=== PATIENT | male | born 1930 | race Caucasian/White ===

== ENCOUNTER 2017-07-11 14:05 | Emergency (ER) | payer MEDICARE, OTHER ==
[~2017-07-11] VITALS: Ht 182.9 cm; Wt 76.5 kg
[~2017-07-11 14:05] MED LIST: ASPI81TA52 PO; CHOL2000 PO; MULT-1179 PO; OMEG1CAP2 PO; UBID1CAP59 PO; VITC500T PO
[2017-07-11 14:44] LABS: BASOPHILS % (AUTO) 0.3 % (0-1); EOSINOPHILS # (AUTO) 0.1 X10'3 (0-0.9); EOSINOPHILS % (AUTO) 1.6 % (0-6); HEMATOCRIT 43.3 % (42.0-52.0); HEMOGLOBIN 14.7 g/dl (14.0-17.9); LYMPHOCYTES # (AUTO) 1.3 X10'3 (1.1-4.8); MEAN CORPUSCULAR HEMOGLOBIN 30.2 PG (27.0-31.0); MEAN CORPUSCULAR VOLUME 88.8 FL (78-98); MEAN PLATELET VOLUME 8.6 FL (7.4-10.4); MONOCYTES # (AUTO) 0.5 X10'3 (0-0.9); MONOCYTES % (AUTO) 6.9 % (2-12); NEUTROPHILS # (AUTO) 5.2 X10'3 (1.8-7.7); NEUTROPHILS % (AUTO) 73.2 % (42-75); PLATELET COUNT 164 X10'3 (140-440); RED BLOOD COUNT 4.87 X10'6 (4.70-6.10); RED CELL DISTRIBUTION WIDTH 13.7 % (11.5-14.5); WHITE BLOOD COUNT 7.1 X10'3 (4.5-11.0)
[2017-07-11 14:53] LABS: PARTIAL THROMBOPLASTIN TIME 27 SECONDS (22-32); PROTHROMBIN TIME 10.7 SECONDS (9.0-12.0)
[2017-07-11 14:58] LABS: ALBUMIN 3.7 G/DL (3.4-5.0); ANION GAP 7 (8-16); BILIRUBIN,TOTAL 0.6 MG/DL (0.1-1.0); BLOOD UREA NITROGEN 18 MG/DL (7-18); CALCIUM 8.9 MG/DL (8.5-10.1); CHLORIDE 103 MMOL/L (99-107); CREATININE 0.75 MG/DL (0.60-1.10); GLUCOSE 88 MG/DL (70-104); POTASSIUM 4.1 MMOL/L (3.5-5.1); SODIUM 139 MMOL/L (135-145); TOTAL CARBON DIOXIDE 28.7 MMOL/L (24-32); TOTAL PROTEIN 6.7 G/DL (6.4-8.2); eGFR > 90 ML/MIN
[2017-07-11 14:59] LABS: ALANINE AMINOTRANSFERASE 28 U/L (12-78); ALBUMIN/GLOBULIN RATIO 1.2 (1.1-1.5); ALKALINE PHOSPHATASE 86 IU/L (46-116); ASPARTATE AMINO TRANSFERASE 16 U/L (10-37)
[2017-07-11] MEDS ORDERED: clindamycin 150mg capsule PO ONE (17:25)
[2017-07-11] MEDS ORDERED: CLIN-80 PO (17:41)
[2017-07-11 18:01] VITALS: BP 149/84
== END 2017-07-11 18:02 | disposition home or self-care (01) ==
LOC: ER 14:05
DX: L03.113 Cellulitis of right upper limb (principal); Z79.82 Long term (current) use of aspirin; Z79.899 Other long term (current) drug therapy
CPT/HCPCS: 36415; 73030; 73080; 73090; 80053; 85025; 85610; 85730; 93971; 99285; A6446

== ENCOUNTER 2017-08-16 13:10 | Emergency (ER) | payer OTHER, MEDICARE ==
[~2017-08-16] VITALS: Ht 6038.7 cm; Wt 77.3 kg
[~2017-08-16 13:10] MED LIST changes: +CLIN-80 PO
[2017-08-16 17:46] LABS: CLARITY,URINE CLEAR (Clear); COLOR,URINE YELLOW (Yellow); GLUCOSE, URINE NEGATIVE (Neg); KETONES,URINE TRACE mg/dl (Neg); LEUKOCYTE ESTERASE ,URINE NEGATIVE (Neg); NITRITES, URINE NEGATIVE (Neg); OCCULT BLOOD,URINE TRACE-INTACT (Neg); PROTEIN,URINE NEGATIVE (Neg); UROBILINOGEN,URINE 0.2 E.U/dL (0.2-1.0)
[2017-08-16 17:47] LABS: UA COLLECTION TYPE CLN CATCH MIDSTREAM
[2017-08-16 17:51] LABS: BACTERIA,URINE NONE SEEN /HPF (Neg); SQUAMOUS EPITHELIAL CELL,UR NONE SEEN /LPF (FEW); WBC,URINE 0-4 /HPF (0-4)
[2017-08-16] MEDS ORDERED: traMADol 50MG tablet PO ONE (18:00)
[2017-08-16] MEDS ORDERED: ondansetron 4mg rapidly disintigrating tab PO ONE (18:00)
[2017-08-16 19:08] VITALS: BP 154/94
[2017-08-16] MEDS ORDERED: DOCU-28 PO (19:08)
[2017-08-16] MEDS ORDERED: ONDA4TAB12 PO (19:08)
[2017-08-16] MEDS ORDERED: TRAM50TA2 PO (19:08)
== END 2017-08-16 21:00 | disposition home or self-care (01) ==
LOC: ER 13:10
DX: R32 Unspecified urinary incontinence (principal); S22.088A Other fracture of T11-T12 vertebra, initial encounter for closed fracture; S32.048A Other fracture of fourth lumbar vertebra, initial encounter for closed fracture; G89.29 Other chronic pain; Z95.0 Presence of cardiac pacemaker; Z79.82 Long term (current) use of aspirin; Z79.899 Other long term (current) drug therapy; W19.XXXA Unspecified fall, initial encounter; Y93.E1 Activity, personal bathing and showering; Y92.89 Other specified places as the place of occurrence of the external cause; Y99.8 Other external cause status
CPT/HCPCS: 72128; 72131; 81001; 99285